=== PATIENT | female | born 1935 | race African-American/Black ===

== ENCOUNTER 2016-10-03 11:53 | Emergency (ER) | payer MEDICARE ==
[~2016-10-03] VITALS: Ht 175.3 cm; Wt 70.0 kg
[2016-10-03 12:12] VITALS: BP 87/60
[2016-10-03 12:12] LABS: BILIRUBIN,URINE Negative (Negative); CLARITY,URINE Clear; COLOR,URINE Yellow; GLUCOSE, URINE (UA) Negative (Negative); LEUKOCYTE ESTERASE ,URINE Negative (Negative); UROBILINOGEN,URINE 0.2 mg/dL (0.2-1.0)
[2016-10-03 12:17] LABS: BASOPHILS % (AUTO) 1 % (0-2); EOSINOPHILS # (AUTO) 0.1 10^3uL; EOSINOPHILS % (AUTO) 2 % (0-4); LYMPHOCYTES # (AUTO) 2.4 X10^3; MEAN CORPUSCULAR VOLUME 80 FL (80-100); MEAN PLATELET VOLUME 9.6 FL (6.0-9.5); MONOCYTES # (AUTO) 0.3 X10^3; MONOCYTES % (AUTO) 6 % (3-11); NEUTROPHILS # (AUTO) 2.6 X10^3; NEUTROPHILS % (AUTO) 47 % (51-67); PLATELET COUNT 300 10^3uL (150-450); WHITE BLOOD COUNT 5.46 10^3uL (4.0-11.0)
[2016-10-03 12:19] LABS: MEAN CORPUSCULAR HEMOGLOBIN 26.4 PG (26.0-34.0)
[2016-10-03 12:19] LABS: URINE CENTRIFUGED VOLUME <10mL Unspun
[2016-10-03 12:25] LABS: ANION GAP 15.4 MEQ/L (3-15); CALCULATED IONIZED CALCIUM 3.4 mg/dL (3.8-4.6); TOTAL PROTEIN 9.3 g/dL (6.4-8.5)
== END 2016-10-03 15:12 | disposition home or self-care (01) ==
LOC: EDUNIT# 11:53 → ED 11:55
DX: I95.1 Orthostatic hypotension (principal); E86.0 Dehydration; R55 Syncope and collapse
CPT/HCPCS: 36415; 80053; 81003; 81015; 85025; 93005; 96360; 99284; J7030; 93010

== ENCOUNTER → 2016-10-03 | Outpatient (CLI) | payer MEDICARE | LOC: EMS 11:45 | PROVIDERS: ATTEND Emergency Medicine | DX: R55 Syncope and collapse (principal); R53.1 Weakness ==